=== PATIENT | male | born 1925 | race Caucasian/White ===

== ENCOUNTER 2016-09-17 10:09 | Emergency (ER) | payer OTHER ==
[~2016-09-17] VITALS: Ht 170.2 cm; Wt 180.0 kg
[~2016-09-17 10:09] MED LIST: CITA20TA4 PO; LOSA25 PO; NORV5TAB PO; PRAV20 PO; VITA-13 PO; VITA100020 PO; WALKER ROLLING
[2016-09-17 10:16] VITALS: BP 185/97; PULSE 54; RESP 15; TEMP 98.1
[2016-09-17] MEDS ORDERED: AMLO5TAB2 PO (10:38)
[2016-09-17] MEDS ORDERED: LOVA40TA PO (10:38)
[2016-09-17] MEDS ORDERED: LOSA25TA PO (10:38)
[2016-09-17] MEDS ORDERED: VITA1000 (10:38)
[2016-09-17] MEDS ORDERED: CITA20TA4 PO (10:38)
[2016-09-17 10:39] VITALS: BP 158/100; PULSE 55; RESP 15; O2SAT 99
--- NOTE | 2016-09-17 10:45 | PD ---
HPI Chief Complaint: Fall Time Seen by Provider: 10:25 Travel History International Travel<30 days: No Contact w/Intl Traveler<30days: No Traveled to known affect area: No History of Present Illness HPI PATIENT WAS REACHING TO GRAB [employer]S FOOD BOWL AND LOST HIS BALANCE AND FELL...DOES NOT C/O ANY ACTIVE PAIN BUT WAS BROUGHT IN BACKBOARDED FROM HOME. PATIENT WAS ABLE TO MOVE ALL EXTREMITIES WELL. PFSH Past Medical History Arthritis: No Asthma: No Atrial Fibrillation: Yes Autoimmune Disease: No Blood Disorders: No Anxiety: No Depression: No Heart Rhythm Problems: Yes (chronic afib) Cancer: Yes (prostate) Cardiovascular Problems: Yes (Atrial fibrillation) High Cholesterol: Yes Chemotherapy: No Chest Pain: No Congestive Heart Failure: No COPD: No Cerebrovascular Accident: Yes Diabetes: No Diminished Hearing: Yes Endocrine: No GERD: No Genitourinary: Yes Hiatal Hernia: No Hypertension: Yes Immune Disorder: No Kidney Stones: No Medical other: Yes (VERTIGO) Musculoskeletal: No Neurologic: Yes (History of TIA 2006) Psychiatric: No Reproductive: No Respiratory: No Immunizations Current: Yes Migraines: No Radiation Therapy: No Renal Failure: No Seizures: No Sickle Cell Disease: No Sleep Apnea: No Thyroid Disease: No Ulcer: No Tetanus Vaccination: < 5 Years Influenza Vaccination: Yes Past Surgical History Abdominal Surgery: No AICD: No Arteriovenous Shunt: No Cardiac Surgery: No Ear Surgery: No Endocrine Surgery: No Eye Surgery: No Genitourinary Surgery: Yes (cryoablation) Gynecologic Surgery: No Insulin Pump: No Joint Replacement: No Neurologic Surgery: Yes Oral Surgery: No Pacemaker: No Prostatectomy: Yes Thoracic Surgery: No Other Surgery: Yes (CRYOABLATION PROSTATE CANCER) Social History Alcohol Use: No Tobacco Use: No Substance Use: No Allergies-Medications (Allergen,Severity, Reaction): Coded Allergies: No Known Allergies (Verified , 09/17/16) Reported Meds & Prescriptions Reported Meds & Active Scripts Active Augmentin (Amoxicillin-Clavulanate) 875-125 Mg Tab 1 Tab PO BID Flexeril (Cyclobenzaprine HCl) 10 Mg Tab 10 Mg PO TID Codeine-Acetaminophen 30-300 mg Tab 1 Tab PO Q4H PRN Reported D 1000 (Cholecalciferol) 1,000 Unit Tab Citalopram (Citalopram Hydrobromide) 20 Mg Tab 20 Mg PO DAILY Lovastatin 40 Mg Tab 40 Mg PO DAILY Losartan (Losartan Potassium) 25 Mg Tab 25 Mg PO DAILY Amlodipine (Amlodipine Besylate) 5 Mg Tab 5 Mg PO DAILY Review of Systems Except as stated in HPI: all other systems reviewed are Neg Physical Exam Narrative GENERAL: SKIN: Warm and dry. NO OPEN LACERATION NOTED ON SCALP/BACK/BUTTOCK/LEGS HEAD: Atraumatic. Normocephalic. EYES: Pupils equal and round. No scleral icterus. No injection or drainage. ENT: No nasal bleeding or discharge. Mucous membranes pink and moist. NECK: Trachea midline. No JVD. C COLLAR IN PLACE, BACKBOARD WAS CLEARED MEDICALLY. NO MIDLINE TTP ON EXAM. CARDIOVASCULAR: Regular rate and rhythm. RESPIRATORY: No accessory muscle use. Clear to auscultation. Breath sounds equal bilaterally. GASTROINTESTINAL: Abdomen soft, non-tender, nondistended. MUSCULOSKELETAL: Extremities without clubbing, cyanosis, or edema. No obvious deformities. ROM OF BILATERAL HIP/KNEE NEUROLOGICAL: Awake and alert. No obvious cranial nerve deficits. Motor grossly within normal limits. Five out of 5 muscle strength in the arms and legs. Normal speech. PSYCHIATRIC: Appropriate mood and affect; insight and judgment normal. Data Data Last Documented VS Vital Signs Date Time Temp Pulse Resp B/P Pulse Ox O2 Delivery O2 Flow Rate FiO2 09/17/16 14:15 68 14 176/83 97 09/17/16 10:39 Nasal Cannula 2 09/17/16 10:[address] Brain W/O Iv Contrast(Rout) (09/17/16 10:31) Blood Glucose (09/17/16 10:31) Ct Cerv Spine W/O Contrast (09/17/16 ) Amoxicil-Clavulanate (Augmentin) (09/17/16 14:00) Acetamin-Codeine 300-30 Mg (Tylenol-Code (09/17/16 14:00) MDM Medical Decision Making Medical Screen Exam Complete: Yes Emergency Medical Condition: Yes Medical Record Reviewed: Yes Differential Diagnosis CONTUSION V FX V DISLOCATION V ICH Narrative Course DURING EVALUAITON CT HEAD NEG FOR ICH, BUT SHOWED SPHENOID SINUSITIS, ADDITIONAL STUDIES SHOWED DDD BUT WITHOUT FRACTURE OR DISLOCATION OF CERVICAL SPINE Diagnosis Primary Impression: CONTUSION Additional Impressions: 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
--- NOTE | 2016-09-17 12:24 | RADRPT ---
EXAM DATE/TIME: 09/17/2016 11:19 [facility] COMPARISON: CT BRAIN W/O CONTRAST, December 01, 2013, 13:38. INDICATIONS : Fell from a standing position. RADIATION DOSE: 56.35 CTDIvol (mGy) MEDICAL HISTORY : Carcinoma, prostate. A fib TIA SURGICAL HISTORY : Subdural surgery, cryoblation for prostate ENCOUNTER: Initial ACUITY: 1 day PAIN SCALE: 0/10 LOCATION: Cranial TECHNIQUE: Multiple contiguous axial images were obtained of the head. Using automated exposure control and adj ustment of the mA and/or kV according to patient size, radiation dose was kept as low as reasonably a chievable to obtain optimal diagnostic quality images. DICOM format image data is available electro nically for review and comparison. FINDINGS: Diffuse cerebral atrophy is noted. Moderate to severe periventricular and subcortical white matter s mall vessel ischemic changes are noted bilaterally. There is an old lacunar infarct within the right thalamus. Old infarct is also noted involving the right temporal parietal region. There is no acute infarct, acute hemorrhage , midline shift or extraaxial fluid collections. There is mild mucosal thickening involving the right sphenoid sinus . Mucus retention cyst is noted within the right maxillary sinus anteriorly. No skull fracture is noted. CONCLUSION: 1. Diffuse cerebral atrophy. 2. Severe periventricular and subcortical white matter small vessel ischemic changes bilaterally. 3. Old lacunar infarct within the right thalamus. 4. Old infarct involving the right temporal parietal region. 5. Mucosal thickening involving the right sphenoid sinus and mucus retention cyst within the right a nterior maxillary sinus. 6. No acute infarct, acute hemorrhage, midline shift or extraaxial fluid collections. Bakari Dale MD on September 17, 2016 at 12:06 Board Certified Radiologist. This report was verified electronically.
[2016-09-17 13:00] VITALS: BP 170/88; PULSE 70; RESP 15
--- NOTE | 2016-09-17 13:15 | RADRPT ---
EXAM DATE/TIME: 09/17/2016 11:23 [facility] COMPARISON: CT CERVICAL SPINE W/O CONTRAST, November 03, 2013, 16:47. INDICATIONS : Fell from a standing postion RADIATION DOSE: 46.49 CTDIvol (mGy) MEDICAL HISTORY : Carcinoma, prostate. A-fib TIA SURGICAL HISTORY : Subdural surgery cryoblation prostate ENCOUNTER: Initial ACUITY: 1 day PAIN SCALE: 0/10 LOCATION: Bilateral neck TECHNIQUE: Volumetric scanning of the cervical spine was performed. Multiplanar reconstructions in the sagittal, coronal and oblique axial planes were performed. Using automated exposure control and adjustment o f the mA and/or kV according to patient size, radiation dose was kept as low as reasonably achievable to obtain optimal diagnostic quality images. DICOM format image data is available electronically f or review and comparison. FINDINGS: Sagittal and coronal reconstructions show stable appearance of the cervical spine with multileve l degenerative disc disease most prominent at C5-6 and C6-7 with anteriorly directed uncovertebral sp urs. Minimal grade 1 retrolisthesis of C3 on C4 probably due to facet degeneration. Vertebral body he ights are maintained without fracture. Spinal canal is widely patent. Slight exaggerated lordotic cur vature. Detailed axial images as follows: C2-C3: The bony spinal canal is normal in size. No evidence of disc bulge or herniation. The neural forami na are bilaterally patent. C3-C4: Minimal uncovertebral ridging right posterior paraspinal canal and neural foramina are adequate. C4-C5: Uncovertebral ridging. Spinal canal and neural foramina are adequate. C5-C6: Uncovertebral ridging. Spinal canal and neural foramina remain adequate. C6-C7: Uncovertebral ridge is most prominent anteriorly. Spinal canal and neural foramina remain adequate. C7-T1: The bony spinal canal is normal in size. No evidence of disc bulge or herniation. The neural forami na are bilaterally patent. CONCLUSION: 1. Stable examination with degenerative disc disease and uncovertebral ridging most prominent at C5-6 and C6-7. 2. Despite degenerative changes, spinal canal and neural foramina remain adequate. 3. No acute fracture. iMke Lopez MD on September 17, 2016 at 13:07 Board Certified Radiologist. This report was verified electronically.
[2016-09-17] MEDS ORDERED: CODE30TA2 PO (13:47)
[2016-09-17] MEDS ORDERED: CYCL1TAB29 PO (13:47)
[2016-09-17] MEDS ORDERED: AUGM875T3 PO (13:53)
[2016-09-17] MEDS ORDERED: AMOXICILLIN/CLAVULANATE K 875 MG TAB PO ONE (14:00)
[2016-09-17] MEDS ORDERED: ACETAMINOPHEN/CODEINE 300 MG/30 MG TAB PO ONE (14:00)
[2016-09-17 14:15] VITALS: BP 176/83
== END 2016-09-17 14:41 | disposition home or self-care (01) ==
LOC: NEPE 10:09
DX: S00.93XA Contusion of unspecified part of head, initial encounter (principal); M50.322 Other cervical disc degeneration at C5-C6 level; M50.323 Other cervical disc degeneration at C6-C7 level; J32.3 Chronic sphenoidal sinusitis; I48.91 Unspecified atrial fibrillation; E78.00 Pure hypercholesterolemia, unspecified; I10 Essential (primary) hypertension; W18.30XA Fall on same level, unspecified, initial encounter; Z86.73 Personal history of transient ischemic attack (TIA), and cerebral infarction without residual deficits
CPT/HCPCS: 70450; 72125; 99285

== ENCOUNTER 2016-10-08 09:23 | Emergency (ER) | payer OTHER ==
[~2016-10-08] VITALS: Ht 170.2 cm; Wt 82.0 kg
[~2016-10-08 09:23] MED LIST changes: +AMLO5TAB2 PO; +AUGM875T3 PO; +CODE30TA2 PO; +CYCL1TAB29 PO; -LOSA25 PO; +LOSA25TA PO; +LOVA40TA PO; -NORV5TAB PO; -PRAV20 PO; -VITA-13 PO; +VITA1000; -VITA100020 PO; -WALKER ROLLING
[2016-10-08 09:25] VITALS: BP 138/65; PULSE 81; RESP 20; TEMP 98.8; O2SAT 97
[2016-10-08 09:39] VITALS: BP 150/81; PULSE 71; RESP 12; O2SAT 99
[2016-10-08 11:14] LABS: AUTOMATED NEUTROPHIL # 10.7 TH/MM3 (1.8-7.7); BASOPHIL % 0.2 % (0.0-2.0); EOSINOPHIL # 0.2 TH/MM3 (0-0.4); EOSINOPHIL % 1.2 % (0.0-4.0); HEMATOCRIT 40.6 % (39.0-51.0); LYMPH % 9.5 % (9.0-44.0); LYMPHOCYTE # 1.4 TH/MM3 (1.0-4.8); MEAN CELL VOLUME 101.3 FL (80.0-100.0); MEAN CORPUSCULAR HEMOGLOBIN 33.7 PG (27.0-34.0); MEAN CORPUSCULAR HGB CONC 33.3 % (32.0-36.0); MONO % 15.5 % (0.0-8.0); NEUT % 73.6 % (16.0-70.0); PLATELET COUNT 387 TH/MM3 (150-450); RED CELL DISTRIBUTION WIDTH 13.9 % (11.6-17.2); WHITE BLOOD COUNT 14.5 TH/MM3 (4.0-11.0)
[2016-10-08 11:15] LABS: HEMO FLAGS AUTO DIFF
[2016-10-08 11:21] LABS: APTT (PATIENT) 24.5 SEC (24.3-30.1); PROTHROMBIN TIME - PATIENT 10.9 SEC (9.8-11.6)
[2016-10-08 11:33] LABS: ALT (GPT) 24 U/L (12-78)
[2016-10-08 11:41] LABS: ALKALINE PHOSPHATASE 83 U/L (45-117); ANION GAP 8 MEQ/L (5-15); AST (GOT) 26 U/L (15-37); BICARBONATE 24.1 MEQ/L (21.0-32.0); BLOOD UREA NITROGEN 25 MG/DL (7-18); CHLORIDE 103 MEQ/L (98-107); GLOMERULAR FILTRATION RATE 54 ML/MIN (>89); SODIUM (NA) 135 MEQ/L (136-145); TOTAL BILIRUBIN ADULT 0.8 MG/DL (0.2-1.0)
[2016-10-08 11:50] LABS: ALCOHOL LESS THAN 3 MG/DL (0-5); POTASSIUM 4.5 MEQ/L (3.5-5.1)
[2016-10-08 11:56] LABS: PLATELET ESTIMATE SMEAR HIGH (NORMAL); PLATELET MORPHOLOGY NORMAL (NORMAL); SCAN/DIFF AUTO DIFF CONFIRMED
[2016-10-08 11:58] LABS: BLOOD, URINE TRACE (NEG); GLUCOSE,URINE NEG (NEG); KETONE, URINE NEG (NEG); NITRITE,URINE NEG (NEG); PH, URINE 6.5 (5.0-8.5); URINE COLOR YELLOW (YELLW/STRAW)
[2016-10-08 12:01] LABS: COMMENT (UR) CULT NOT INDICATED; CULTURE IF INDICATED CULT NOT INDICATED
--- NOTE | 2016-10-08 12:32 | PD ---
HPI Chief Complaint: Neuro Symptoms/ Deficits Time Seen by Provider: 10:31 Travel History International Travel<30 days: No Contact w/Intl Traveler<30days: No Traveled to known affect area: No History of Present Illness HPI Is an 89-year-old man who presents to the emergency department brought in by his because she reports that he sort of fell yesterday and isn't quite acting right. Report is a history of falls. Yesterday he had sort of an unusual fall where he really just sort of got weak all over and slid down. He didn't really fall per se. No loss of consciousness. He slept most of yesterday, and is likely describes it wasn't really talking very much. She feels like his speech has been slurred since then. He normally walks with a walker. He has been doing that still recently. He has a history of similar symptoms in 2006 when he sinus with a TIA. 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 He does have A. fib but is off any anticoagulation now. History Past Medical History Narrative Medical Heart of hearing A. fib, off anticoagulation on hyperlipidemia History of prostate cancer Social History Alcohol Use: No Tobacco Use: No Allergies-Medications (Allergen,Severity, Reaction): Coded Allergies: amoxicillin (Verified Allergy, Unknown, 10/08/16) codeine (Verified Allergy, Unknown, 10/08/16) Reported Meds & Prescriptions Reported Meds & Active Scripts Active Reported D 1000 (Cholecalciferol) 1,000 Unit Tab Citalopram (Citalopram Hydrobromide) 20 Mg Tab 20 Mg PO DAILY Lovastatin 40 Mg Tab 40 Mg PO DAILY Losartan (Losartan Potassium) 25 Mg Tab 25 Mg PO DAILY Amlodipine (Amlodipine Besylate) 5 Mg Tab 5 Mg PO DAILY Review of Systems Except as stated in HPI: all other systems reviewed are Neg Physical Exam Narrative GENERAL: Well-appearing 89-year-old man, hard of hearing and although slow to respond to questions. No obvious deficits. SKIN: Focused skin assessment warm/dry. HEAD: Atraumatic. Normocephalic. EYES: Pupils equal and round. No scleral icterus. No injection or drainage. ENT: No nasal bleeding or discharge. Mucous membranes pink and moist. NECK: Trachea midline. No JVD. CARDIOVASCULAR: Regular rate and rhythm. No murmur appreciated. RESPIRATORY: No accessory muscle use. Clear to auscultation. Breath sounds equal bilaterally. GASTROINTESTINAL: Abdomen soft, non-tender, nondistended. Hepatic and splenic margins not palpable. MUSCULOSKELETAL: No obvious deformities. No clubbing. No cyanosis. No edema. NEUROLOGICAL: Awake and alert. Slow to respond to questions and heart of hearing. No obvious facial asymmetry or facial droop. I don't hear any obvious dysarthria. His speech doesn't seem slurred to me but the feels like it's different than normal. Strength is full and equal in the upper or lower extremities. No drift. Sensations intact to light touch and equal throughout the upper or lower extremities. PSYCHIATRIC: Appropriate mood and affect; insight and judgment normal. Data Data Last Documented VS Vital Signs Date Time Temp Pulse Resp B/P Pulse Ox O2 Delivery O2 Flow Rate FiO2 10/08/16 09:39 71 12 150/81 99 Room Air 10/08/16 09:25 98.8 Orders Complete Blood Count With Diff (10/08/16 10:22) Comprehensive Metabolic Panel (10/08/16 10:22) Alcohol (Ethanol) (10/08/16 10:22) Iv Access Insert/Monitor (10/08/16 10:22) Ct Brain W/O Iv Contrast(Rout) (10/08/16 ) Electrocardiogram (10/08/16 ) Troponin I (10/08/16 10:22) Act Partial Throm Time (Ptt) (10/08/16 10:32) Prothrombin Time / Inr (Pt) (10/08/16 10:32) Urinalysis - C+S If Indicated (10/08/16 10:35) Labs Laboratory Tests Test 10/08/16 10/08/16 10:30 10:45 White Blood Count 14.5 TH/MM3 Red Blood Count 4.00 MIL/MM3 Hemoglobin 13.5 GM/DL Hematocrit 40.6 % Mean Corpuscular Volume 101.3 FL Mean Corpuscular Hemoglobin 33.7 PG Mean Corpuscular Hemoglobin 33.3 % Concent Red Cell Distribution Width 13.9 % Platelet Count 387 TH/MM3 Mean Platelet Volume 7.6 FL Neutrophils (%) (Auto) 73.6 % Lymphocytes (%) (Auto) 9.5 % Monocytes (%) (Auto) 15.5 % Eosinophils (%) (Auto) 1.2 % Basophils (%) (Auto) 0.2 % Neutrophils # (Auto) 10.7 TH/MM3 Lymphocytes # (Auto) 1.4 TH/MM3 Monocytes # (Auto) 2.3 TH/MM3 Eosinophils # (Auto) 0.2 TH/MM3 Basophils # (Auto) 0.0 TH/MM3 CBC Comment AUTO DIFF Differential Comment AUTO DIFF CONFIRMED Platelet Estimate HIGH Platelet Morphology Comment NORMAL Red Cell Morphology Comment NORMAL Sodium Level 135 MEQ/L Potassium Level 4.5 MEQ/L Chloride Level 103 MEQ/L Carbon Dioxide Level 24.1 MEQ/L Anion Gap 8 MEQ/L Blood Urea Nitrogen 25 MG/DL Creatinine 1.26 MG/DL Estimat Glomerular Filtration 54 ML/MIN Rate Random Glucose 170 MG/DL Calcium Level 7.9 MG/DL Total Bilirubin 0.8 MG/DL Aspartate Amino Transf 26 U/L (AST/SGOT) Alanine Aminotransferase 24 U/L (ALT/SGPT) Alkaline Phosphatase 83 U/L Troponin I LESS THAN 0.02 NG/ML Total Protein 6.8 GM/DL Albumin 3.0 GM/DL Ethyl Alcohol Level LESS THAN 3 MG/DL Prothrombin Time 10.9 SEC Prothromb Time International 1.0 RATIO Ratio Activated Partial 24.5 SEC Thromboplast Time Urine Color YELLOW Urine Turbidity CLEAR Urine pH 6.5 Urine Specific [place] 1.009 Urine Protein NEG mg/dL Urine Glucose (UA) NEG mg/dL Urine Ketones NEG mg/dL Urine Occult Blood TRACE Urine Nitrite NEG Urine Bilirubin NEG Urine Urobilinogen LESS THAN 2.0 MG/DL Urine Leukocyte Esterase NEG Urine RBC 2 /hpf Urine WBC 1 /hpf Microscopic Urinalysis Comment CULT NOT INDICATED MDM Medical Decision Making Medical Screen Exam Complete: Yes Emergency Medical Condition: Yes Interpretation(s) My review of EKG: A. fib, rate of 62, normal axis, normal intervals, no definite evidence of acute ischemia. LABS: CBC remarkable for white count of 14.5 thousand, otherwise unremarkable. CMP mildly elevated BUN Troponin negative Coags unremarkable Alcohol negative UA unremarkable. Head CT: Differential Diagnosis Weakness, infection, CVA, VA, or joint abnormality, other Narrative Course Medical decision making This is an 89-year-old man who presents to the emergency department complaining of some weakness, generalized slowness to respond, and concern for slurred speech. He looks generally well. I don't see any obvious focal deficits. Initial workups unremarkable. FINAL: Reviewed images, labs. Awaiting final read of CT. I spoke with the patient's . Possibly may have had a small stroke. I don't see any obvious abnormalities on his exam that she feels like he still talking a little bit slurred although not as bad as yesterday. He likely needs further workup including carotid, possible MRI. I offered admission to the hospital but she states that he would be more comfortable at home. Bouncing wrist and benefits of hospitalization in his quality of life, think this is probably reasonable at this point. I will have him start a full dose aspirin every day. We'll have him return for any worsening symptoms. Diagnosis Primary Impression: Atrial fibrillation Additional Impression: Slurred speech Additional Instructions: Take aspirin, 325 mg daily as prescribed. Follow-up with her primary doctor in the next 2-4 days. Return to the emergency department for any new or worsening symptoms. Med/Other Pt SpecificInfo: Prescription(s) given Disposition: 01 DISCHARGE HOME Condition: Stable Shun Rodriguez MD Oct 08, 2016 12:32
--- NOTE | 2016-10-08 13:05 | RADRPT ---
EXAM DATE/TIME: 10/08/2016 11:15 [facility] COMPARISON: CT BRAIN W/O CONTRAST, September 17, 2016, 11:19. INDICATIONS : Patient fell today, slurred speech for 2 days RADIATION DOSE: 31.46 CTDIvol (mGy) MEDICAL HISTORY : Cardiovascular disease. Hypertension. Cardiovascular disease SURGICAL HISTORY : Craniotomy. ENCOUNTER: Initial ACUITY: 1 day PAIN SCALE: 3/10 LOCATION: Posterior head TECHNIQUE: Multiple contiguous axial images were obtained of the head. Using automated exposure control and adj ustment of the mA and/or kV according to patient size, radiation dose was kept as low as reasonably a chievable to obtain optimal diagnostic quality images. DICOM format image data is available electro nically for review and comparison. FINDINGS: Diffuse cerebral atrophy is again noted. Periventricular and subcortical white matter small vessel ischemic changes are also again noted. Focal area of encephalomalacia involving the ri ght temporal parietal lobe is unchanged. There is an old lacunar infarct within the right thalamus. There is no acute infarct, acute hemorrhage, mass effect or extra-axial fluid collection. Post surgical changes are noted invo lving the right posterior temporal skull. CONCLUSION: 1. No acute infarct, acute hemorrhage, midline shift or extra-axial fluid collections. 2. Mild cerebral atrophy. 3. Periventricular and subcortical white matter small vessel ischemic changes bilaterally. 4. Encephalomalacia involving the right temporal parietal lobe. 5. Old lacunar infarct within the right thalamus. Bakari Dale MD on October 08, 2016 at 11:28 Board Certified Radiologist. This report was verified electronically.
[2016-10-08 13:38] VITALS: BP 142/82; PULSE 78; RESP 16; O2SAT 98
--- NOTE | 2016-10-08 13:44 | EKG ---
Date Performed: 10/08/2016 Time Performed: 09:43:12 PTAGE: 89 years EKG: ATRIAL FIBRILLATION MODERATE ST DEPRESSION ABNORMAL ECG Compared to prior tracing no signif icant change NO PREVIOUS TRACING DOCTOR: Kerwin Mcclain Interpretating Date/Time 10/08/2016 13:43:19
== END 2016-10-08 13:39 | disposition home or self-care (01) ==
LOC: NEPC 09:23
DX: I48.91 Unspecified atrial fibrillation (principal); R47.81 Slurred speech
CPT/HCPCS: 70450; 80053; 80307; 81001; 84484; 85025; 85610; 85730; 93005; 99285